=== PATIENT | male | born 1975 | race Caucasian/White ===

== ENCOUNTER 2018-10-09 15:44 | Emergency (ER) | payer BC, OTHER ==
[~2018-10-09] VITALS: Ht 188 cm; Wt 122.5 kg
[2018-10-09 16:09] VITALS: BP 135/94
== END 2018-10-09 17:33 | disposition home or self-care (01) ==
LOC: ER 15:44
DX: S46.912A Strain of unspecified muscle, fascia and tendon at shoulder and upper arm level, left arm, initial encounter (principal); S39.012A Strain of muscle, fascia and tendon of lower back, initial encounter; S29.011A Strain of muscle and tendon of front wall of thorax, initial encounter; F17.210 Nicotine dependence, cigarettes, uncomplicated; V43.52XA Car driver injured in collision with other type car in traffic accident, initial encounter; Y93.89 Activity, other specified; Y99.8 Other external cause status; Y92.410 Unspecified street and highway as the place of occurrence of the external cause
CPT/HCPCS: 71046; 72220; 73000; 73100